=== PATIENT | male | born 1975 | race Two or more races ===

== ENCOUNTER → 2016-10-22 | Outpatient (CLI) | payer SELFPAY ==
--- NOTE | 2016-10-23 09:50 | CR ---
EXAMINATION: Thoracic spine HISTORY: Injury COMPARISON: None TECHNIQUE: AP and lateral views FINDINGS: There is minimal levoscoliosis of the thoracic spine. The vertebral body heights and disc spaces appear well-maintained. There is no fracture or dislocation. Bone mineralization is normal. T he lungs are clear. IMPRESSION: Minimal levocurvature of the otherwise unremarkable thoracic spine.
--- NOTE | 2016-10-23 10:35 | CR ---
EXAMINATION: Cervical spine HISTORY: Fall COMPARISON: None TECHNIQUE: AP and lateral views FINDINGS: The cervical spinal alignment appears normal. The vertebral body heights and disc spaces a ppear well-maintained. Bone mineralization is normal. The prevertebral soft tissues are unremarkabl e. IMPRESSION: Grossly unremarkable cervical spine.
== END ==
LOC: MW.CHFP 15:09
PROVIDERS: ATTEND Physician Assistant
DX: S39.92XA Unspecified injury of lower back, initial encounter (principal); W19.XXXA Unspecified fall, initial encounter
CPT/HCPCS: 72040; 72040-26; 72070; 72070-26